=== PATIENT | female | born 1945 | race Hispanic/Latino ===

== ENCOUNTER 2020-04-01 18:16 | Emergency (ER) | payer MEDICARE ==
[2020-04-01] MEDS ORDERED: ASPIRIN 81 MG CHEW TAB PO ONE ×2 (18:45→20:30)
[2020-04-01 18:53] LABS: BASOPHILS % 0.2 % (0.0-1.0); EOSINOPHILS # (AUTO) 0.1 (0.0-0.4); EOSINOPHILS % 0.6 % (0.0-6.0); HEMATOCRIT 41.5 % (34.2-44.1); HEMOGLOBIN 13.1 g/dL (12.0-16.0); LYMPHOCYTES # (AUTO) 1.3 (1.0-3.2); LYMPHOCYTES % 14.4 % (18.0-39.1); MEAN CORPUSCULAR HEMOGLOBIN 29.2 pg (28-32); MEAN CORPUSCULAR HGB CONC 31.6 g/dL (31-35); MEAN CORPUSCULAR VOLUME 92.4 fL (81-99); MONOCYTES # (AUTO) 0.5 (0.2-0.8); MONOCYTES % 5.1 % (4.4-11.3); NEUTROPHILS # (AUTO) 7.2 (2.1-6.9); NEUTROPHILS % 78.9 % (38.7-80.0); PLATELET COUNT 211 x10e3/uL (140-360); RED BLOOD COUNT 4.49 x10e6/uL (3.6-5.1); RED CELL DISTRIBUTION WIDTH 14.6 % (11.7-14.4)
[2020-04-01 19:16] LABS: ALANINE AMINOTRANSFERASE 19 IU/L (0-55); ALBUMIN 3.7 g/dL (3.5-5.0); ALBUMIN/GLOBULIN RATIO 1.1 (0.8-2.0); ALKALINE PHOSPHATASE 102 IU/L (40-150); ANION GAP 14.8 mmol/L (8-16); BLOOD UREA NITROGEN 18 mg/dL (7-26); BUN/CREATININE RATIO 25 (6-25); CALCIUM 9.6 mg/dL (8.4-10.2); CARBON DIOXIDE 30 mmol/L (22-29); CHLORIDE 101 mmol/L (98-107); CREATINE KINASE 72 IU/L (29-168); CREATININE, SERUM 0.73 mg/dL (0.57-1.11); EST GLOMERULAR FILTRATION RATE > 60 ML/MIN (60-); GLUCOSE 129 mg/dL (74-118); POTASSIUM 3.8 mmol/L (3.5-5.1); SODIUM 142 mmol/L (136-145)
[2020-04-01] MEDS ORDERED: SODIUM CHLORIDE 0.9% 50ML 50 ML ONE (19:36)
[2020-04-01] MEDS ORDERED: IOPAMIDOL 370 MG/ML 200 ML INFUS..BTL INJ ONE (19:36)
[2020-04-01] MEDS ORDERED: MORPHINE SULFATE INJ 4 MG/ML INJ 1ML IV PRN (20:30)
[2020-04-01] MEDS ORDERED: ONDANSETRON HCL INJ 2MG/ML 2ML 2 MG/ML VIAL IV PRN (20:30)
[2020-04-01] MEDS ORDERED: SODIUM CHLORIDE 0.9% 1000ML 1,000 ML IV SCH (20:30)
[2020-04-01] MEDS ORDERED: RIVAROXABAN 15 MG TABLET PO STA (20:30)
[2020-04-01 21:02] VITALS: BP 165/63
== END 2020-04-01 21:03 | disposition home or self-care (01) ==
LOC: ER 18:29
DX: R55 Syncope and collapse (principal); I26.99 Other pulmonary embolism without acute cor pulmonale; E11.65 Type 2 diabetes mellitus with hyperglycemia; I10 Essential (primary) hypertension; E78.5 Hyperlipidemia, unspecified
CPT/HCPCS: 36415; 71260; 80053; 82550; 82553; 83880; 84484; 85025; 99284; Q9967

== ENCOUNTER 2022-02-13 21:19 | Emergency (ER) | payer MEDICARE ==
[~2022-02-13] VITALS: Ht 149.9 cm; Wt 72.6 kg
[2022-02-13 22:28] LABS: ANION GAP 18.6 mmol/L (8-16); CALCIUM 9.8 mg/dL (8.4-10.2); CREATININE, SERUM 1.19 mg/dL (0.57-1.11); POTASSIUM 4.6 mmol/L (3.5-5.1)
[2022-02-13] MEDS ORDERED: IOPAMIDOL 370 MG/ML 100 ML INFUS..BTL INJ ONE (23:01)
[2022-02-14 00:51] VITALS: BP 120/60
== END 2022-02-14 00:48 | disposition home or self-care (01) ==
LOC: ER 21:27
DX: R53.83 Other fatigue (principal); R79.1 Abnormal coagulation profile; R11.0 Nausea; R53.1 Weakness; R94.31 Abnormal electrocardiogram [ECG] [EKG]; Z20.822 Contact with and (suspected) exposure to COVID-19
CPT/HCPCS: 36415; 71260; 80048; 93005; 99284; Q9967; U0002

== ENCOUNTER 2022-03-22 19:23 | Observation (INO) | payer MEDICARE ==
[~2022-03-22] VITALS: Ht 149.9 cm; Wt 72.6 kg
[2022-03-22] MEDS ORDERED: ASPIRIN 81 MG CHEW TAB PO ONE ×2 (19:45→21:00)
[2022-03-22] MEDS ORDERED: ONDANSETRON HCL INJ 2MG/ML 2ML 2 MG/ML VIAL IV STA (19:45)
[2022-03-22] MEDS ORDERED: HYDRALAZINE HCL 20 MG/ML VIAL IV STA (19:45)
[2022-03-22] MEDS ORDERED: SODIUM CHLORIDE FLUSH 10 ML SYR IV PRN (19:45)
[2022-03-22 20:05] LABS: BASOPHILS % 0.3 % (0.0-1.0); EOSINOPHILS # (AUTO) 0.1 (0.0-0.4); HEMATOCRIT 39.1 % (34.2-44.1); HEMOGLOBIN 11.5 g/dL (12.0-16.0); LYMPHOCYTES # (AUTO) 1.1 (1.0-3.2); LYMPHOCYTES % 11.1 % (18.0-39.1); MEAN CORPUSCULAR HEMOGLOBIN 29.3 pg (28-32); MEAN CORPUSCULAR HGB CONC 29.4 g/dL (31-35); MEAN CORPUSCULAR VOLUME 99.7 fL (81-99); MONOCYTES # (AUTO) 0.6 (0.2-0.8); MONOCYTES % 6.1 % (4.4-11.3); NEUTROPHILS # (AUTO) 7.9 (2.1-6.9); NEUTROPHILS % 80.8 % (38.7-80.0); PLATELET COUNT 209 x10e3/uL (140-360); RED BLOOD COUNT 3.92 x10e6/uL (3.6-5.1); RED CELL DISTRIBUTION WIDTH 14.3 % (11.7-14.4)
[2022-03-22 20:25] LABS: ALBUMIN 3.4 g/dL (3.5-5.0); ALBUMIN/GLOBULIN RATIO 1.1 (0.8-2.0); ANION GAP 12.6 mmol/L (8-16); CALCIUM 9.8 mg/dL (8.4-10.2); CREATININE, SERUM 0.72 mg/dL (0.57-1.11); POTASSIUM 4.6 mmol/L (3.5-5.1)
[2022-03-22] MEDS ORDERED: ONDANSETRON HCL INJ 2MG/ML 2ML 2 MG/ML VIAL IV PRN (21:00)
[2022-03-22] MEDS ORDERED: Morphine 4mg INJECTION 4 MG/ML INJ IV PRN (21:00)
[2022-03-22] MEDS ORDERED: SODIUM CHLORIDE FLUSH 10 ML SYR INJ PRN (21:00)
[2022-03-22] MEDS: FUROSEMIDE INJ 10 MG/ML 4 ML VIAL IV SCH (21:10)
[2022-03-22 23:00] VITALS: BP 160/56
[2022-03-22 23:25] VITALS: BP 160/56
[2022-03-23] VITALS (7 sets, daily range): BP systolic 137–158; BP diastolic 54–68
[2022-03-23] MEDS ORDERED: NEBIVOLOL HCL20 MG PO (00:04)
[2022-03-23] MEDS ORDERED: LOVASTATIN10 MG PO (00:04)
[2022-03-23] MEDS ORDERED: METFORMIN HCL500 M1 PO (00:04)
[2022-03-23] MEDS ORDERED: GLIMEPIRIDE2 MG PO (00:04)
[2022-03-23 04:25] LABS: BASOPHILS % 0.2 % (0.0-1.0); EOSINOPHILS # (AUTO) 0.1 (0.0-0.4); EOSINOPHILS % 0.9 % (0.0-6.0); HEMATOCRIT 37.1 % (34.2-44.1); HEMOGLOBIN 10.8 g/dL (12.0-16.0); LYMPHOCYTES # (AUTO) 1.3 (1.0-3.2); LYMPHOCYTES % 14.8 % (18.0-39.1); MEAN CORPUSCULAR HEMOGLOBIN 29.1 pg (28-32); MEAN CORPUSCULAR HGB CONC 29.1 g/dL (31-35); MONOCYTES # (AUTO) 0.6 (0.2-0.8); MONOCYTES % 7.2 % (4.4-11.3); NEUTROPHILS # (AUTO) 6.6 (2.1-6.9); NEUTROPHILS % 76.3 % (38.7-80.0); PLATELET COUNT 200 x10e3/uL (140-360); RED BLOOD COUNT 3.71 x10e6/uL (3.6-5.1); RED CELL DISTRIBUTION WIDTH 14.2 % (11.7-14.4)
[2022-03-23 04:44] LABS: ALBUMIN 3.1 g/dL (3.5-5.0); ANION GAP 13.8 mmol/L (8-16); CALCIUM 9.3 mg/dL (8.4-10.2); CREATININE, SERUM 0.71 mg/dL (0.57-1.11); POTASSIUM 3.8 mmol/L (3.5-5.1)
[2022-03-23 05:06] LABS: CREATINE KINASE MB 1.6 ng/mL (0-5.0)
[2022-03-23 07:43] LABS: CHOL/HDL RATIO 5.7 (3.0-3.6)
[2022-03-23] MEDS ORDERED: TRIAMTERENE-HCTZ1 EA PO (08:46)
[2022-03-23] MEDS ORDERED: CARVEDILOL25 MG PO (08:46)
[2022-03-23] MEDS: ASPIRIN 81 MG ENTERIC COATED PO SCH (08:53)
[2022-03-23] MEDS: FUROSEMIDE INJ 10 MG/ML 4 ML VIAL IV SCH ×2 (08:53→20:58)
[2022-03-23] MEDS ORDERED: LOSARTAN POTASSIUM 100 MG TAB PO SCH (09:00)
[2022-03-23] MEDS ORDERED: CLONIDINE HCL 0.1 MG TAB PO PRN (12:00)
[2022-03-23 12:42] LABS: CREATINE KINASE MB 1.5 ng/mL (0-5.0)
[2022-03-23] MEDS: CARVEDILOL 3.125 MG TAB PO SCH (16:54)
[2022-03-23] MEDS: METFORMIN HCL 500 MG TAB CR PO SCH (16:54)
[2022-03-23] MEDS ORDERED: CARVEDILOL 12.5 MG TAB PO SCH (17:00)
[2022-03-23] MEDS ORDERED: NON-FORMULARY MEDICATION (Carvedilol 25 MG) PO SCH (17:00)
[2022-03-23 18:47] LABS: CREATINE KINASE MB 1.7 ng/mL (0-5.0)
[2022-03-23] MEDS ORDERED: ATORVASTATIN 20 MG TAB PO SCH (21:00)
[2022-03-24] VITALS: BP 134/54
[2022-03-24 04:00] VITALS: BP 160/60
[2022-03-24] MEDS ORDERED: GLIMEPIRIDE 2 MG TAB PO SCH (07:30)
[2022-03-24 08:16] VITALS: BP 136/69
[2022-03-24] MEDS: METFORMIN HCL 500 MG TAB CR PO SCH (08:16)
[2022-03-24] MEDS: FUROSEMIDE INJ 10 MG/ML 4 ML VIAL IV SCH (08:17)
[2022-03-24] MEDS: ASPIRIN 81 MG ENTERIC COATED PO SCH (08:17)
[2022-03-24] MEDS: CARVEDILOL 3.125 MG TAB PO SCH (08:18)
[2022-03-24 08:30] VITALS: BP 136/69
[2022-03-24] MEDS ORDERED: LOSARTAN POTASSIUM 25 MG TAB PO SCH (09:00)
[2022-03-24 12:33] VITALS: BP 131/71
[2022-03-24] MEDS ORDERED: COZAAR25 MG PO (13:49)
[2022-03-24] MEDS ORDERED: COREG3.125 MG PO (13:49)
[2022-03-24] MEDS ORDERED: LASIX40 MG PO (13:49)
== END 2022-03-24 14:17 | disposition home or self-care (01) ==
LOC: ER 19:30 → ERHOLD 20:56 → MED/SURG 23:05
PROVIDERS: ADMIT Internal Medicine; ATTEND Internal Medicine
DX: I11.0 Hypertensive heart disease with heart failure (principal); E11.69 Type 2 diabetes mellitus with other specified complication; E78.2 Mixed hyperlipidemia; E78.00 Pure hypercholesterolemia, unspecified; I50.33 Acute on chronic diastolic (congestive) heart failure; Z20.822 Contact with and (suspected) exposure to COVID-19
CPT/HCPCS: 36415 ×3; 71045 ×2; 80053 ×2; 80061; 82550; 82553; 82948 ×3; 83036; 83880; 84484 ×2; 85025 ×2; 93005 ×2; 93306; 94760; 99284; G0378 ×3; J1940 ×3; U0002; J0360

== ENCOUNTER 2024-09-01 17:37 | Inpatient (IN) | payer MEDICARE ==
[~2024-09-01] VITALS: Ht 149.9 cm; Wt 70.3 kg
[~2024-09-01 17:37] MED LIST: AMLODIPINE BESYL5 MG PO; CARVEDILOL25 MG PO; COREG3.125 MG PO; COZAAR25 MG PO; DIOVAN160 MG PO; FOSAMAX70 MG PO; GLIMEPIRIDE2 MG PO; HYDROCHLOROTHIA25 MG PO; LASIX40 MG PO; LEVOFLOXACIN500 MG PO; LOVASTATIN10 MG PO; METFORMIN HCL500 M1 PO; NEBIVOLOL HCL20 MG PO; ONDANSETRON HCL4 MG PO; SIMVASTATIN40 MG PO; TRIAMTERENE-HCTZ1 EA PO; TYLENOL325 MG PO
[2024-09-01 17:55] VITALS: TEMP 98
[2024-09-01] MEDS: DIGOXIN INJ 0.25 MG/ML 2 ML AMP IV STA (18:16)
[2024-09-01] MEDS: SODIUM CHLORIDE 0.9% 1000ML 2,000 ML IV STA (18:18)
[2024-09-01] MEDS: DILTIAZEM HCL 5 MG/ML 5 ML VIAL IV STA ×2 (18:19→19:19)
[2024-09-01] MEDS: METOPROLOL TARTRATE INJ 1 MG/ML VIAL IV STA ×2 (18:24→19:14)
[2024-09-01 18:32] LABS: BASOPHILS % 0.2 % (0.0-1.0); EOSINOPHILS % 0.9 % (0.0-6.0); LYMPHOCYTES % 16.8 % (18.0-39.1); MONOCYTES % 8.1 % (4.4-11.3); NEUTROPHILS % 73.0 % (38.7-80.0); RED CELL DISTRIBUTION WIDTH 13.5 % (11.7-14.4)
[2024-09-01 18:47] LABS: EST GLOMERULAR FILTRATION RATE 77.0 ML/MIN (>=60)
[2024-09-01 19:12] LABS: INR 0.87
[2024-09-01] MEDS ORDERED: SODIUM CHLORIDE FLUSH 10 ML SYR INJ PRN (20:00)
[2024-09-01] MEDS ORDERED: Morphine 4mg INJECTION 4 MG/ML INJ IV PRN (20:00)
[2024-09-01] MEDS ORDERED: ONDANSETRON HCL INJ 2MG/ML 2ML 2 MG/ML VIAL IV PRN (20:00)
[2024-09-01 20:47] VITALS: PULSE 88; RESP 18; O2SAT 98
[2024-09-01] MEDS ORDERED: GLUCAGON FOR INJ 1 MG VIAL ONE (21:07)
[2024-09-01] MEDS: ENOXAPARIN INJ 80 MG/0.8 ML SYR SC SCH (21:11)
[2024-09-01] MEDS: GLUCAGON FOR INJ 1 MG VIAL IV ONE (21:19)
[2024-09-01] MEDS: CALCIUM GLUC 1 G/50 ML NACL 50 ML IV ONE (21:22)
[2024-09-01 21:58] VITALS: PULSE 60; RESP 18
[2024-09-01 22:29] VITALS: BP 134/51; PULSE 65; RESP 16; TEMP 98.6; O2SAT 100
[2024-09-01] MEDS ORDERED: METFORMIN HCL500 M1 PO (22:54)
[2024-09-02] VITALS (7 sets, daily range): BP systolic 130–139; BP diastolic 51–62; PULSE 54–95; RESP 16–20; TEMP 97.3–98.6; O2SAT 95–100
[2024-09-02 08:19] LABS: BASOPHILS % 0.3 % (0.0-1.0); EOSINOPHILS % 1.6 % (0.0-6.0); LYMPHOCYTES % 17.6 % (18.0-39.1); MONOCYTES % 7.8 % (4.4-11.3); NEUTROPHILS % 72.0 % (38.7-80.0); RED CELL DISTRIBUTION WIDTH 13.6 % (11.7-14.4)
[2024-09-02] MEDS: METOPROLOL TARTRATE 50 MG TAB PO SCH (08:34)
[2024-09-02 09:04] LABS: EST GLOMERULAR FILTRATION RATE 88.0 ML/MIN (>=60)
[2024-09-02] MEDS ORDERED: ACETAMINOPHEN 325 MG TAB PO PRN (14:45)
[2024-09-02] MEDS ORDERED: SIMETHICONE 80 MG CHEW PO PRN (14:45)
[2024-09-02] MEDS ORDERED: HYDRALAZINE HCL 20 MG/ML VIAL IV PRN (14:45)
[2024-09-02] MEDS ORDERED: BENZONATATE 100 MG CAP PO PRN (14:45)
[2024-09-02] MEDS ORDERED: MELATONIN 5 MG TABLET PO PRN (14:45)
[2024-09-02] MEDS ORDERED: LIDOCAINE 4% PATCH TP PRN (14:45)
[2024-09-02] MEDS ORDERED: POTASSIUM CHLORIDE 20 MEQ TAB CR PO PRN (14:45)
[2024-09-02] MEDS ORDERED: DIPHENHYDRAMINE HCL 25 MG CAP PO PRN (14:45)
[2024-09-02] MEDS ORDERED: DEXTROSE 50% SYRINGE 50 ML IV PRN ×2 (14:45)
[2024-09-02] MEDS ORDERED: ALBUTEROL/IPRATROPIUM 3 ML NEB NEB PRN (14:45)
[2024-09-02] MEDS ORDERED: DOCUSATE SODIUM 100 MG CAP PO PRN (14:45)
[2024-09-02] MEDS: AMIODARONE HCL 200 MG TAB PO SCH (16:59)
[2024-09-02] MEDS: METOPROLOL TARTRATE 25 MG TAB PO SCH (16:59)
[2024-09-02] MEDS: INSULIN LISPRO 100 UNIT/1 ML 3ML VIAL SQ SCH (17:07)
[2024-09-03 06:07] LABS: BASOPHILS % 0.5 % (0.0-1.0); EOSINOPHILS % 1.7 % (0.0-6.0); LYMPHOCYTES % 15.9 % (18.0-39.1); MONOCYTES % 7.4 % (4.4-11.3); NEUTROPHILS % 73.4 % (38.7-80.0); RED CELL DISTRIBUTION WIDTH 13.5 % (11.7-14.4)
[2024-09-03 06:35] LABS: CHOL/HDL RATIO 5.8 (3.0-3.6); EST GLOMERULAR FILTRATION RATE 88.0 ML/MIN (>=60); LDL CHOLESTEROL 112.0 MG/DL (60-130)
[2024-09-03 06:49] LABS: PHOSPHORUS 3.5 MG/DL (2.3-4.7)
[2024-09-03] MEDS: PANTOPRAZOLE SOD 40 MG TABEC PO SCH (07:30)
[2024-09-03 08:56] VITALS: BP 147/70; PULSE 60; RESP 18; TEMP 97.3; O2SAT 100
[2024-09-03 12:22] VITALS: BP 132/60; PULSE 61; RESP 18; TEMP 97.6; O2SAT 98
[2024-09-03] MEDS ORDERED: REGADENOSON 0.4 MG/5 ML SYR IV ONE (13:49)
[2024-09-03 17:18] VITALS: BP 160/62; PULSE 69; RESP 20; TEMP 98.2; O2SAT 98
[2024-09-03 20:00] VITALS: BP 126/64; PULSE 55; RESP 18; TEMP 97.8; O2SAT 100
[2024-09-03 20:42] VITALS: BP 126/64; PULSE 55; RESP 18; TEMP 97.8; O2SAT 100
[2024-09-04 00:46] VITALS: BP 136/65; PULSE 54; RESP 16; TEMP 97.9; O2SAT 96
[2024-09-04 09:00] VITALS: BP 136/65; PULSE 54; RESP 16; TEMP 97.9; O2SAT 96
[2024-09-04 09:08] VITALS: BP 133/62; PULSE 61; RESP 18; TEMP 97.6; O2SAT 95
[2024-09-04 12:48] VITALS: BP 142/65; PULSE 61; RESP 20; TEMP 98; O2SAT 99
[2024-09-04 13:28] VITALS: PULSE 84; RESP 20; O2SAT 96
[2024-09-04] MEDS ORDERED: APIXABAN 5 MG TABLET PO SCH (17:00)
[2024-09-05] MEDS ORDERED: AMIODARONE HCL 200 MG TAB PO SCH (09:00)
[2024-09-05] MEDS ORDERED: METOPROLOL SUCCINATE 25 MG TAB XL PO SCH (09:00)
== END 2024-09-04 13:20 | disposition home or self-care (01) | DRG 310 ==
LOC: ER 18:02 → ERHOLD 19:51 → MED/SURG2 22:08
PROVIDERS: ADMIT Internal Medicine; ATTEND Internal Medicine
DX: I48.20 Chronic atrial fibrillation, unspecified (principal); E11.9 Type 2 diabetes mellitus without complications; I11.0 Hypertensive heart disease with heart failure; I50.9 Heart failure, unspecified; I47.20 Ventricular tachycardia, unspecified; M19.049 Primary osteoarthritis, unspecified hand; E78.00 Pure hypercholesterolemia, unspecified; Z74.09 Other reduced mobility; I95.9 Hypotension, unspecified; I25.10 Atherosclerotic heart disease of native coronary artery without angina pectoris; R07.89 Other chest pain; Z91.81 History of falling; Z79.84 Long term (current) use of oral hypoglycemic drugs
CPT/HCPCS: 36415; 71045; 78452; 80053; 80061; 82550; 82948; 83036; 83690; 83735; 83880; 84100; 84443; 84484; 85025; 85610; 85730; 93005; 93017; 93306; 93880; 94799; 99283; A9502; J1160; J1610; J1650; J2470; J7030

== ENCOUNTER 2024-09-29 19:56 | Inpatient (IN) | payer MEDICARE ==
[~2024-09-29] VITALS: Ht 152.4 cm; Wt 74.1 kg
[2024-09-29 20:28] LABS: BASOPHILS % 0.3 % (0.0-1.0); EOSINOPHILS % 1.5 % (0.0-6.0); LYMPHOCYTES % 17.7 % (18.0-39.1); MONOCYTES % 9.3 % (4.4-11.3); NEUTROPHILS % 70.3 % (38.7-80.0); RED CELL DISTRIBUTION WIDTH 13.9 % (11.7-14.4)
[2024-09-29 20:40] LABS: INR 1.13
[2024-09-29 20:45] LABS: EST GLOMERULAR FILTRATION RATE 86.0 ML/MIN (>=60)
[2024-09-29] MEDS ORDERED: Morphine 4mg INJECTION 4 MG/ML INJ IV PRN (22:00)
[2024-09-29] MEDS ORDERED: DEXTROSE 50% SYRINGE 50 ML IV PRN (22:00)
[2024-09-29] MEDS ORDERED: ONDANSETRON HCL INJ 2MG/ML 2ML 2 MG/ML VIAL IV PRN (22:00)
[2024-09-29 23:00] VITALS: BP 153/75; PULSE 73; RESP 18; TEMP 98.3; O2SAT 97
[2024-09-29 23:15] VITALS: PULSE 62; RESP 16; TEMP 98.4
[2024-09-30] VITALS (10 sets, daily range): BP systolic 150–187; BP diastolic 59–70; PULSE 55–68; RESP 16–20; TEMP 97.7–98.4; O2SAT 97–99
[2024-09-30] MEDS: ASPIRIN 81 MG CHEW TAB PO ONE (00:11)
[2024-09-30] MEDS ORDERED: ELIQUIS5 MG PO (01:53)
[2024-09-30] MEDS ORDERED: METOPROLOL SUCC25 MG PO (01:53)
[2024-09-30] MEDS ORDERED: AMIODARONE HCL200 MG PO (01:53)
[2024-09-30 05:55] LABS: BASOPHILS % 0.4 % (0.0-1.0); EOSINOPHILS % 1.1 % (0.0-6.0); LYMPHOCYTES % 17.7 % (18.0-39.1); MONOCYTES % 7.9 % (4.4-11.3); NEUTROPHILS % 72.1 % (38.7-80.0); RED CELL DISTRIBUTION WIDTH 14.1 % (11.7-14.4)
[2024-09-30 06:38] LABS: CHOL/HDL RATIO 4.8 (3.0-3.6); EST GLOMERULAR FILTRATION RATE 89.0 ML/MIN (>=60); LDL CHOLESTEROL 90.0 MG/DL (60-130)
[2024-09-30] MEDS: INSULIN REGULAR, HUMAN 100 UNIT/1 ML SQ SCH (07:30)
[2024-09-30] MEDS ORDERED: APIXABAN 5 MG TABLET PO SCH (10:00)
[2024-09-30] MEDS: AMIODARONE HCL 200 MG TAB PO SCH (10:13)
[2024-09-30] MEDS: METOPROLOL SUCCINATE 25 MG TAB XL PO SCH (10:13)
[2024-09-30] MEDS: POTASSIUM CHLORIDE 20 MEQ TAB CR PO ONE (11:05)
[2024-09-30] MEDS ORDERED: HYDRALAZINE HCL 20 MG/ML VIAL IV PRN (11:15)
[2024-09-30] MEDS ORDERED: MELATONIN 5 MG TABLET PO PRN (11:15)
[2024-09-30] MEDS ORDERED: LIDOCAINE 4% PATCH TP PRN (11:15)
[2024-09-30] MEDS ORDERED: POTASSIUM CHLORIDE 20 MEQ TAB CR PO PRN (11:15)
[2024-09-30] MEDS ORDERED: BENZONATATE 100 MG CAP PO PRN (11:15)
[2024-09-30] MEDS ORDERED: ALBUTEROL/IPRATROPIUM 3 ML NEB NEB PRN (11:15)
[2024-09-30] MEDS ORDERED: DEXTROSE 50% SYRINGE 50 ML IV PRN (11:15)
[2024-09-30] MEDS ORDERED: DIPHENHYDRAMINE HCL 25 MG CAP PO PRN (11:15)
[2024-09-30] MEDS ORDERED: SIMETHICONE 80 MG CHEW PO PRN (11:15)
[2024-09-30] MEDS ORDERED: ACETAMINOPHEN 325 MG TAB PO PRN (11:15)
[2024-09-30] MEDS: LOSARTAN POTASSIUM 100 MG TAB PO SCH (16:29)
[2024-09-30] MEDS ORDERED: SODIUM CHLORIDE 0.9% 1000ML 1,000 ML IV SCH (18:15)
[2024-09-30] MEDS: CLOPIDOGREL BISULFATE 75 MG TAB PO ONE (18:26)
[2024-09-30] MEDS ORDERED: GLIMEPIRIDE 2 MG TAB PO SCH (21:00)
[2024-09-30] MEDS: SODIUM CHLORIDE 0.9% 1000ML 1,000 ML IV SCH (21:23)
[2024-10-01] VITALS (20 sets, daily range): BP systolic 128–196; BP diastolic 58–90; PULSE 53–87; RESP 15–22; TEMP 97.2–98.3; O2SAT 92–100
[2024-10-01 06:26] LABS: BASOPHILS % 0.5 % (0.0-1.0); EOSINOPHILS % 2.0 % (0.0-6.0); LYMPHOCYTES % 20.6 % (18.0-39.1); MONOCYTES % 8.6 % (4.4-11.3); NEUTROPHILS % 67.6 % (38.7-80.0); RED CELL DISTRIBUTION WIDTH 14.0 % (11.7-14.4)
[2024-10-01 07:06] LABS: EST GLOMERULAR FILTRATION RATE 89.0 ML/MIN (>=60)
[2024-10-01] MEDS: PANTOPRAZOLE SOD 40 MG TABEC PO SCH (09:13)
[2024-10-01] MEDS: GLIMEPIRIDE 2 MG TAB PO SCH (09:14)
[2024-10-01] MEDS: HYDRALAZINE HCL 20 MG/ML VIAL ONE (16:52)
[2024-10-01] MEDS ORDERED: MUPIROCIN 2% OINT 22 GM TUBE TOP SCH (17:00)
[2024-10-01] MEDS ORDERED: ONDANSETRON HCL INJ 2MG/ML 2ML 2 MG/ML VIAL IV PRN (17:15)
[2024-10-01] MEDS ORDERED: Morphine 2mg Syringe 2 MG/ML SYR IV PRN (17:15)
[2024-10-01] MEDS: SODIUM CHLORIDE 0.9% 1000ML 1,000 ML IV SCH (17:15)
[2024-10-01] MEDS ORDERED: HYDROCODONE/APAP 5MG-325MG TAB PO PRN (17:15)
[2024-10-01] MEDS: Morphine 4mg INJECTION 4 MG/ML INJ ONE (17:46)
[2024-10-01] MEDS: METOPROLOL TARTRATE 25 MG TAB PO SCH (21:22)
[2024-10-02] VITALS (9 sets, daily range): BP systolic 113–142; BP diastolic 54–66; PULSE 52–82; RESP 16–20; TEMP 97.4–98.6; O2SAT 95–100
[2024-10-02 06:30] LABS: BASOPHILS % 0.2 % (0.0-1.0); EOSINOPHILS % 1.1 % (0.0-6.0); LYMPHOCYTES % 12.9 % (18.0-39.1); MONOCYTES % 9.2 % (4.4-11.3); NEUTROPHILS % 76.1 % (38.7-80.0); RED CELL DISTRIBUTION WIDTH 14.0 % (11.7-14.4)
[2024-10-02 06:58] LABS: EST GLOMERULAR FILTRATION RATE 89.0 ML/MIN (>=60)
[2024-10-02] MEDS ORDERED: CLOPIDOGREL BISULFATE 75 MG TAB PO SCH (09:00)
[2024-10-02] MEDS: CLOPIDOGREL BISULFATE 75 MG TAB ONE (09:09)
[2024-10-02] MEDS: HEPARIN SOD/SOD CHLORIDE 2,000 ML ONE (09:10)
[2024-10-02] MEDS: LIDOCAINE HCL 2% LOCAL 20 ML VIAL ONE (09:10)
[2024-10-02] MEDS: IOPAMIDOL 370 MG/ML 100 ML INFUS..BTL INJ ONE (09:11)
[2024-10-02] MEDS: NITROGLYCERIN/D5W 200 MCG/ML 250 ML ONE (09:11)
[2024-10-02] MEDS: HEPARIN SOD (PORCINE) 1000 UNIT/ML 30ML ONE (09:11)
[2024-10-02] MEDS: SODIUM CHLORIDE 0.9% 1000ML 1,000 ML ONE (09:11)
[2024-10-02] MEDS: VERAPAMIL HCL 2.5 MG/ML 2 ML VIAL ONE (09:11)
[2024-10-02] MEDS: FENTANYL CITRATE/PF 100MCG/2 ML INJ ONE (09:12)
[2024-10-02] MEDS: ASPIRIN 325 MG TAB ONE (09:12)
[2024-10-02] MEDS: MIDAZOLAM HCL 2 MG/2 ML VIAL ONE (09:12)
[2024-10-02] MEDS: ADENOSINE 3MG/1ML 30ML VIAL ONE (09:12)
[2024-10-02] MEDS: NIFEDIPINE CR 30 MG TAB PO SCH (09:33)
[2024-10-02] MEDS: ASPIRIN 81 MG ENTERIC COATED PO SCH (09:33)
[2024-10-02] MEDS: CLOPIDOGREL BISULFATE 75 MG TAB PO SCH (09:34)
[2024-10-02] MEDS: DOCUSATE SODIUM 100 MG CAP PO PRN (10:52)
[2024-10-02] MEDS: FUROSEMIDE INJ 10 MG/ML 2 ML VIAL IV ONE (16:45)
[2024-10-03] VITALS: BP 137/57; PULSE 56; RESP 18; TEMP 98; O2SAT 99
[2024-10-03 04:00] VITALS: BP 132/57; PULSE 60; RESP 18; TEMP 97.7; O2SAT 98
[2024-10-03 04:15] VITALS: BP 137/57; PULSE 56; RESP 18; TEMP 98; O2SAT 99
[2024-10-03 06:25] VITALS: PULSE 63; RESP 20; O2SAT 96
[2024-10-03 07:39] LABS: EST GLOMERULAR FILTRATION RATE 80.0 ML/MIN (>=60)
[2024-10-03] MEDS: FUROSEMIDE 20 MG TAB PO SCH (08:39)
[2024-10-03 08:47] VITALS: BP 134/70; PULSE 52; RESP 18; TEMP 98.1; O2SAT 96
[2024-10-03] MEDS: FUROSEMIDE INJ 10 MG/ML 2 ML VIAL IV ONE (10:31)
[2024-10-03 12:12] VITALS: BP 145/69; PULSE 58; RESP 18; TEMP 98.6; O2SAT 100
[2024-10-03] MEDS ORDERED: ELIQUIS2.5 MG PO (14:11)
== END 2024-10-03 15:20 | disposition home or self-care (01) | DRG 321 ==
LOC: ER 20:11 → ERHOLD 22:03 → MED/SURG3 09-30 00:02 → OBSVTOIN 10-01 15:34
PROVIDERS: ADMIT Internal Medicine; ATTEND Internal Medicine
PROC: 027034Z Dilation of Coronary Artery, One Artery with Drug-eluting Intraluminal Device, Percutaneous Approach (ICD-10-PCS; principal; 2024-10-01)
PROC: 4A023N7 Measurement of Cardiac Sampling and Pressure, Left Heart, Percutaneous Approach (ICD-10-PCS; 2024-10-01)
PROC: B2111ZZ Fluoroscopy of Multiple Coronary Arteries using Low Osmolar Contrast (ICD-10-PCS; 2024-10-01)
PROC: B2151ZZ Fluoroscopy of Left Heart using Low Osmolar Contrast (ICD-10-PCS; 2024-10-01)
PROC: B240ZZ3 Ultrasonography of Single Coronary Artery, Intravascular (ICD-10-PCS; 2024-10-01)
DX: I25.110 Atherosclerotic heart disease of native coronary artery with unstable angina pectoris (principal); I50.33 Acute on chronic diastolic (congestive) heart failure; I47.20 Ventricular tachycardia, unspecified; I11.0 Hypertensive heart disease with heart failure; I48.0 Paroxysmal atrial fibrillation; Z79.01 Long term (current) use of anticoagulants; E78.5 Hyperlipidemia, unspecified; E11.9 Type 2 diabetes mellitus without complications; Z79.84 Long term (current) use of oral hypoglycemic drugs; E66.01 Morbid (severe) obesity due to excess calories; Z68.31 Body mass index [BMI] 31.0-31.9, adult; R53.81 Other malaise; Z79.899 Other long term (current) drug therapy
CPT/HCPCS: 36415; 71045; 71046; 76937; 80048; 80053; 80061; 82550; 82948; 83735; 83880; 84484; 85014; 85018; 85025; 85610; 85730; 92920; 92978; 93005; 93458; 93571; 94799; 99152; 99153; 99252; 99284; C1753; C1760; C1766; C1769; C1874; C1887; G0378; J0153; J0360; J1644; J1938; J2003; J2250; J2270; J2470; J7030; Q9967